=== PATIENT | male | born 1985 | race Caucasian/White ===

== ENCOUNTER 2020-11-25 15:04 | Inpatient (IN) | payer OTHER ==
[~2020-11-25] VITALS: Ht 170.2 cm; Wt 85.9 kg
[2020-11-25] MEDS ORDERED: IOHEXOL 350 MG/ML 75 ML VIAL ONE (16:16)
[2020-11-25] MEDS ORDERED: SODIUM CHLORIDE 0.9% 100 ML ONE (16:16)
[2020-11-25 16:50] LABS: COVID AG,FIA SOURCE NASAL SWAB
[2020-11-25 16:54] LABS: BASOPHILS % (AUTO) 0.7 % (0.0-2.0); EOSINOPHILS % (AUTO) 0.9 % (1.0-6.0); HEMATOCRIT 39.7 % (41-53); LYMPHOCYTES # (AUTO) 0.9 K/uL (1.0-4.8); LYMPHOCYTES % (AUTO) 12.4 % (22.0-44.0); MEAN CORPUSCULAR HEMOGLOBIN 26.9 pg (26.0-34.0); MEAN CORPUSCULAR HGB CONC 32.8 G/dL (31.0-37.0); MEAN CORPUSCULAR VOLUME 82 fL (80-100); MONOCYTES % (AUTO) 13.2 % (2.0-9.0); NEUTROPHILS # (AUTO) 5.3 K/uL (1.8-7.7); NEUTROPHILS % (AUTO) 72.8 % (40.0-70.0); PLATELET COUNT (AUTO) 431 K/uL (150-450); RED BLOOD CELL COUNT(AUTO) 4.85 MIL/uL (4.50-5.90); RED CELL DISTRIBUTION WIDTH 14.8 % (11.5-14.5)
[2020-11-25 17:05] LABS: ANION GAP 7 mmol/L (8-16); CALCIUM, TOTAL 8.7 mg/dL (8.8-10.5); CARBON DIOXIDE 27 mmol/L (22-29); CHLORIDE 103 mmol/L (98-107); CREATININE 1.07 mg/dL (0.60-1.30); GLOMERULAR FILTR. RATE CALC > 60 mL/min (>60); GLUCOSE,RANDOM 97 mg/dL (70-110); POTASSIUM 4.4 mmol/L (3.5-5.1); SODIUM SERUM 137 mmol/L (136-145); UREA NITROGEN, BLOOD 14 mg/dL (7-18)
[2020-11-25 17:11] LABS: ALANINE AMINOTRANSFERASE 73 U/L (12-78); ALBUMIN 3.2 g/dL (3.4-5.0); ALKALINE PHOSPHATASE 129 U/L (46-116); ASPARTATE AMINOTRANSFERASE 27 U/L (15-37); TOTAL PROTEIN, SERUM 8.1 g/dL (6.4-8.2)
[2020-11-25 17:15] LABS: B-TYPE NATRIURETIC PEPTIDE < 5 pg/mL (0-100)
[2020-11-25] MEDS ORDERED: ONDANSETRON HCL 4 MG/2 ML VIAL IVP PRN (19:15)
[2020-11-25] MEDS ORDERED: ACETAMINOPHEN 325 MG TABLET PO PRN (19:15)
[2020-11-25 20:30] VITALS: BP 130/81
[2020-11-26 04:00] VITALS: BP 114/68
[2020-11-26 07:36] VITALS: BP 111/99
[2020-11-26] MEDS ORDERED: MAGNESIUM HYDROXIDE SUSPENSION 30 ML UDCUP PO PRN (09:45)
[2020-11-26] MEDS ORDERED: SODIUM CHLORIDE 3% 15 ML NEB SOLUTION NEB ONE (19:26)
[2020-11-26] MEDS: ACETAMINOPHEN 325 MG TABLET PO PRN (20:09)
[2020-11-26 20:35] VITALS: BP 144/81
[2020-11-27 04:57] VITALS: BP 123/66
[2020-11-27] MEDS ORDERED: SODIUM CHLORIDE 3% 15 ML NEB SOLUTION NEB ONE ×2 (05:32→09:44)
[2020-11-27] MEDS ORDERED: 0.9% SODIUM CHLORIDE 5 ML NEB SOLUTION NEB ONE (05:47)
[2020-11-27 08:00] VITALS: BP 116/59
[2020-11-27] MEDS: FAMOTIDINE 20 MG TABLET PO SCH (09:00)
[2020-11-27] MEDS ORDERED: FentaNYL CITRATE PF 100 MCG/2 ML VIAL ONE (09:12)
[2020-11-27] MEDS ORDERED: MIDAZOLAM HCL 2 MG/2 ML VIAL ONE (09:13)
[2020-11-27] MEDS ORDERED: NALOXONE HCL 0.4 MG/ML VIAL ONE (10:53)
[2020-11-27] MEDS ORDERED: FLUMAZENIL 0.1 MG/ML 5 ML VIAL IVP ONE (10:53)
[2020-11-27] MEDS ORDERED: FentaNYL CITRATE PF 100 MCG/2 ML VIAL IVP ONE ×3 (11:35→12:00)
[2020-11-27] MEDS ORDERED: MIDAZOLAM HCL 2 MG/2 ML VIAL IM ONE (11:35)
[2020-11-27 12:06] LABS: QUANTIFERON, TB GOLD PLUS Positive (Negative)
[2020-11-27] MEDS: ACETAMINOPHEN 325 MG TABLET PO PRN ×2 (14:07→20:25)
[2020-11-27 14:31] LABS: SPECIMENTYPE,BODY FLUID PLEURAL
[2020-11-27 14:44] LABS: PROTHROMBIN TIME 10.8 SEC (9.4-11.6)
[2020-11-27 19:11] LABS: APPEARANCE,SPUN,BODY FLUID CLEAR (CLEAR); APPEARANCE,UNSPUN,BODY FLUID CLEAR (CLEAR); COLOR,BODY FLUID DARK YELLOW (LT YELLOW); EOSINOPHILS,BF (ANAL) 0 %; LYMPHOCYTES,BODY FLUID 68 %; MONOCYTES,BODY FLUID 29 %; NEUTROPHILS,BODY FLUID 3 %; TOTAL VOLUME,BODY FLUID 17 mL; WBC, BODY FLUID 708 /cu. mm.
[2020-11-27 19:12] LABS: BASOPHILS,BODY FLUID 0 %; PH, BODY FLUID 8
[2020-11-27 19:35] VITALS: BP 125/64
[2020-11-28 03:35] VITALS: BP 115/58
[2020-11-28] MEDS: ACETAMINOPHEN 325 MG TABLET PO PRN ×2 (05:41→20:47)
[2020-11-28 07:25] VITALS: BP 121/74
[2020-11-28] MEDS: FAMOTIDINE 20 MG TABLET PO SCH (08:52)
[2020-11-28 12:07] LABS: HIV 1-2 SCREEN 4TH GEN W/RFLX Non Reactive (Non Reactive)
[2020-11-28] MEDS ORDERED: SODIUM CHLORIDE 3% 15 ML NEB SOLUTION NEB ONE (15:00)
[2020-11-28 18:06] LABS: S PNEUMO SOURCE Urine; STREP PNEUMONIAE AG URINE Negative (Negative)
[2020-11-28 19:43] VITALS: BP 120/72
[2020-11-29] MEDS: ACETAMINOPHEN 325 MG TABLET PO PRN ×2 (01:01→21:12)
[2020-11-29 04:45] VITALS: BP 116/60
[2020-11-29 07:59] VITALS: BP 117/69
[2020-11-29] MEDS: FAMOTIDINE 20 MG TABLET PO SCH (08:15)
[2020-11-29 15:59] VITALS: BP 136/74
[2020-11-29 20:08] VITALS: BP 120/61
[2020-11-30 05:16] VITALS: BP 110/55
[2020-11-30 06:37] LABS: ALANINE AMINOTRANSFERASE 56 U/L (12-78); ALBUMIN 2.9 g/dL (3.4-5.0); ALKALINE PHOSPHATASE 133 U/L (46-116); ANION GAP 6 mmol/L (8-16); ASPARTATE AMINOTRANSFERASE 21 U/L (15-37); BILIRUBIN,TOTAL 0.6 mg/dL (0.1-1.0); CARBON DIOXIDE 30 mmol/L (22-29); CHLORIDE 103 mmol/L (98-107); CREATININE 1.03 mg/dL (0.60-1.30); GLOMERULAR FILTR. RATE CALC > 60 mL/min (>60); GLUCOSE,RANDOM 84 mg/dL (70-110); LACTATE DEHYDROGENASE 138 U/L (85-227); POTASSIUM 5.4 mmol/L (3.5-5.1); SODIUM SERUM 139 mmol/L (136-145); UREA NITROGEN, BLOOD 14 mg/dL (7-18)
[2020-11-30 07:34] VITALS: BP 119/68
[2020-11-30] MEDS: FOLIC ACID 1 MG TABLET PO SCH (09:07)
[2020-11-30] MEDS: THIAMINE 100 MG TABLET PO SCH (09:07)
[2020-11-30] MEDS: MULTIVITAMINS WITH MINERALS, THERAPEUTIC TABLET PO SCH (09:07)
[2020-11-30] MEDS: FAMOTIDINE 20 MG TABLET PO SCH (09:07)
[2020-11-30] MEDS: PYRAZINAMIDE 500 MG TABLET PO SCH (16:30)
[2020-11-30] MEDS: ISONIAZID 300 MG TABLET PO SCH (16:30)
[2020-11-30] MEDS: RIFAMPIN 300 MG CAPSULE PO SCH (16:30)
[2020-11-30] MEDS: ETHAMBUTOL HCL 400 MG TABLET PO SCH (16:30)
[2020-11-30] MEDS: PYRIDOXINE HCL 50 MG TABLET PO SCH (16:44)
[2020-11-30 19:44] VITALS: BP 128/73
[2020-11-30] MEDS: ACETAMINOPHEN 325 MG TABLET PO PRN (20:28)
[2020-12-01 05:13] VITALS: BP 109/55
[2020-12-01] MEDS: RIFAMPIN 300 MG CAPSULE PO SCH (08:28)
[2020-12-01] MEDS: ETHAMBUTOL HCL 400 MG TABLET PO SCH (08:28)
[2020-12-01] MEDS: MULTIVITAMINS WITH MINERALS, THERAPEUTIC TABLET PO SCH (08:28)
[2020-12-01] MEDS: ISONIAZID 300 MG TABLET PO SCH (08:28)
[2020-12-01] MEDS: PYRAZINAMIDE 500 MG TABLET PO SCH (08:28)
[2020-12-01] MEDS: FAMOTIDINE 20 MG TABLET PO SCH (08:29)
[2020-12-01] MEDS: FOLIC ACID 1 MG TABLET PO SCH (08:29)
[2020-12-01] MEDS: PYRIDOXINE HCL 50 MG TABLET PO SCH (08:29)
[2020-12-01] MEDS: THIAMINE 100 MG TABLET PO SCH (08:29)
[2020-12-01 08:36] VITALS: BP 107/55
[2020-12-01 19:54] VITALS: BP 126/73
[2020-12-02 05:22] VITALS: BP 122/61
[2020-12-02] MEDS: RIFAMPIN 300 MG CAPSULE PO SCH (08:14)
[2020-12-02] MEDS: FOLIC ACID 1 MG TABLET PO SCH (08:14)
[2020-12-02] MEDS: PYRAZINAMIDE 500 MG TABLET PO SCH (08:14)
[2020-12-02] MEDS: ISONIAZID 300 MG TABLET PO SCH (08:14)
[2020-12-02] MEDS: THIAMINE 100 MG TABLET PO SCH (08:15)
[2020-12-02] MEDS: MULTIVITAMINS WITH MINERALS, THERAPEUTIC TABLET PO SCH (08:15)
[2020-12-02] MEDS: FAMOTIDINE 20 MG TABLET PO SCH (08:15)
[2020-12-02] MEDS: ETHAMBUTOL HCL 400 MG TABLET PO SCH (08:15)
[2020-12-02] MEDS: PYRIDOXINE HCL 50 MG TABLET PO SCH (08:15)
[2020-12-02 08:27] VITALS: BP 101/53
[2020-12-02 16:11] VITALS: BP 118/60
[2020-12-02 21:21] VITALS: BP 130/82
[2020-12-03 05:07] VITALS: BP 105/65
[2020-12-03 08:18] VITALS: BP 113/62
[2020-12-03] MEDS: PYRAZINAMIDE 500 MG TABLET PO SCH (08:51)
[2020-12-03] MEDS: MULTIVITAMINS WITH MINERALS, THERAPEUTIC TABLET PO SCH (08:51)
[2020-12-03] MEDS: FAMOTIDINE 20 MG TABLET PO SCH (08:51)
[2020-12-03] MEDS: ISONIAZID 300 MG TABLET PO SCH (08:51)
[2020-12-03] MEDS: ETHAMBUTOL HCL 400 MG TABLET PO SCH (08:52)
[2020-12-03] MEDS: PYRIDOXINE HCL 50 MG TABLET PO SCH (08:52)
[2020-12-03] MEDS: THIAMINE 100 MG TABLET PO SCH (08:52)
[2020-12-03] MEDS: RIFAMPIN 300 MG CAPSULE PO SCH (08:52)
[2020-12-03] MEDS: FOLIC ACID 1 MG TABLET PO SCH (08:52)
[2020-12-03 20:40] VITALS: BP 122/74
[2020-12-03] MEDS: ACETAMINOPHEN 325 MG TABLET PO PRN (23:54)
[2020-12-04 04:40] VITALS: BP 106/57
[2020-12-04] MEDS: ISONIAZID 300 MG TABLET PO SCH (08:04)
[2020-12-04] MEDS: FAMOTIDINE 20 MG TABLET PO SCH (08:04)
[2020-12-04] MEDS: ETHAMBUTOL HCL 400 MG TABLET PO SCH (08:04)
[2020-12-04] MEDS: RIFAMPIN 300 MG CAPSULE PO SCH (08:04)
[2020-12-04] MEDS: PYRIDOXINE HCL 50 MG TABLET PO SCH (08:04)
[2020-12-04] MEDS: THIAMINE 100 MG TABLET PO SCH (08:04)
[2020-12-04] MEDS: PYRAZINAMIDE 500 MG TABLET PO SCH (08:04)
[2020-12-04] MEDS: MULTIVITAMINS WITH MINERALS, THERAPEUTIC TABLET PO SCH (08:04)
[2020-12-04] MEDS: FOLIC ACID 1 MG TABLET PO SCH (08:04)
[2020-12-04 08:10] VITALS: BP 115/74
[2020-12-04 20:00] VITALS: BP 119/82
[2020-12-05 04:30] VITALS: BP 122/68
[2020-12-05] MEDS: RIFAMPIN 300 MG CAPSULE PO SCH (08:14)
[2020-12-05] MEDS: FOLIC ACID 1 MG TABLET PO SCH (08:14)
[2020-12-05] MEDS: FAMOTIDINE 20 MG TABLET PO SCH (08:14)
[2020-12-05] MEDS: ETHAMBUTOL HCL 400 MG TABLET PO SCH (08:14)
[2020-12-05] MEDS: PYRAZINAMIDE 500 MG TABLET PO SCH (08:14)
[2020-12-05] MEDS: ISONIAZID 300 MG TABLET PO SCH (08:14)
[2020-12-05] MEDS: THIAMINE 100 MG TABLET PO SCH (08:14)
[2020-12-05] MEDS: MULTIVITAMINS WITH MINERALS, THERAPEUTIC TABLET PO SCH (08:14)
[2020-12-05] MEDS: PYRIDOXINE HCL 50 MG TABLET PO SCH (09:27)
[2020-12-05 20:08] VITALS: BP 124/75
[2020-12-06 06:04] VITALS: BP 115/71
[2020-12-06 08:30] VITALS: BP 120/65
[2020-12-06] MEDS: MULTIVITAMINS WITH MINERALS, THERAPEUTIC TABLET PO SCH (09:12)
[2020-12-06] MEDS: PYRAZINAMIDE 500 MG TABLET PO SCH (09:12)
[2020-12-06] MEDS: THIAMINE 100 MG TABLET PO SCH (09:12)
[2020-12-06] MEDS: ISONIAZID 300 MG TABLET PO SCH (09:12)
[2020-12-06] MEDS: RIFAMPIN 300 MG CAPSULE PO SCH (09:12)
[2020-12-06] MEDS: FOLIC ACID 1 MG TABLET PO SCH (09:12)
[2020-12-06] MEDS: FAMOTIDINE 20 MG TABLET PO SCH (09:12)
[2020-12-06] MEDS: PYRIDOXINE HCL 50 MG TABLET PO SCH (09:12)
[2020-12-06] MEDS: ETHAMBUTOL HCL 400 MG TABLET PO SCH (09:13)
[2020-12-06] MEDS: ACETAMINOPHEN 325 MG TABLET PO PRN (09:25)
[2020-12-06 21:48] VITALS: BP 127/78
[2020-12-07 00:23] VITALS: BP 120/79
[2020-12-07 05:37] VITALS: BP 116/67
[2020-12-07 07:54] VITALS: BP 121/55
[2020-12-07] MEDS: ISONIAZID 300 MG TABLET PO SCH (09:03)
[2020-12-07] MEDS: PYRAZINAMIDE 500 MG TABLET PO SCH (09:03)
[2020-12-07] MEDS: PYRIDOXINE HCL 50 MG TABLET PO SCH (09:03)
[2020-12-07] MEDS: RIFAMPIN 300 MG CAPSULE PO SCH (09:04)
[2020-12-07] MEDS: FOLIC ACID 1 MG TABLET PO SCH (09:04)
[2020-12-07] MEDS: ETHAMBUTOL HCL 400 MG TABLET PO SCH (09:04)
[2020-12-07] MEDS: MULTIVITAMINS WITH MINERALS, THERAPEUTIC TABLET PO SCH (09:04)
[2020-12-07] MEDS: FAMOTIDINE 20 MG TABLET PO SCH (09:04)
[2020-12-07] MEDS: THIAMINE 100 MG TABLET PO SCH (09:04)
[2020-12-07 21:34] VITALS: BP 131/77
[2020-12-08 04:25] VITALS: BP 115/75
[2020-12-08 08:00] VITALS: BP 122/62
[2020-12-08] MEDS: RIFAMPIN 300 MG CAPSULE PO SCH (09:41)
[2020-12-08] MEDS: ETHAMBUTOL HCL 400 MG TABLET PO SCH (09:41)
[2020-12-08] MEDS: PYRAZINAMIDE 500 MG TABLET PO SCH (09:42)
[2020-12-08] MEDS: MULTIVITAMINS WITH MINERALS, THERAPEUTIC TABLET PO SCH (09:42)
[2020-12-08] MEDS: FOLIC ACID 1 MG TABLET PO SCH (09:42)
[2020-12-08] MEDS: FAMOTIDINE 20 MG TABLET PO SCH (09:42)
[2020-12-08] MEDS: PYRIDOXINE HCL 50 MG TABLET PO SCH (09:42)
[2020-12-08] MEDS: ISONIAZID 300 MG TABLET PO SCH (09:42)
[2020-12-08] MEDS: THIAMINE 100 MG TABLET PO SCH (09:42)
[2020-12-08 19:50] VITALS: BP 130/73
[2020-12-09 04:53] VITALS: BP 118/59
[2020-12-09 08:19] VITALS: BP 125/75
[2020-12-09] MEDS: PYRAZINAMIDE 500 MG TABLET PO SCH (08:36)
[2020-12-09] MEDS: ETHAMBUTOL HCL 400 MG TABLET PO SCH (08:36)
[2020-12-09] MEDS: MULTIVITAMINS WITH MINERALS, THERAPEUTIC TABLET PO SCH (08:36)
[2020-12-09] MEDS: RIFAMPIN 300 MG CAPSULE PO SCH (08:37)
[2020-12-09] MEDS: FAMOTIDINE 20 MG TABLET PO SCH (08:37)
[2020-12-09] MEDS: FOLIC ACID 1 MG TABLET PO SCH (08:37)
[2020-12-09] MEDS: ISONIAZID 300 MG TABLET PO SCH (08:37)
[2020-12-09] MEDS: THIAMINE 100 MG TABLET PO SCH (08:37)
[2020-12-09] MEDS: PYRIDOXINE HCL 50 MG TABLET PO SCH (08:40)
[2020-12-09 16:03] VITALS: BP 128/70
[2020-12-09 20:15] VITALS: BP 155/87
[2020-12-10 04:20] VITALS: BP 134/81
[2020-12-10 06:06] LABS: HEPATITIS C AB (EIA) <0.1 s/co ratio (0.0-0.9)
[2020-12-10 08:43] VITALS: BP 115/68
[2020-12-10] MEDS: FOLIC ACID 1 MG TABLET PO SCH (09:01)
[2020-12-10] MEDS: PYRIDOXINE HCL 50 MG TABLET PO SCH (09:01)
[2020-12-10] MEDS: THIAMINE 100 MG TABLET PO SCH (09:01)
[2020-12-10] MEDS: ETHAMBUTOL HCL 400 MG TABLET PO SCH (09:01)
[2020-12-10] MEDS: FAMOTIDINE 20 MG TABLET PO SCH (09:01)
[2020-12-10] MEDS: ISONIAZID 300 MG TABLET PO SCH (09:01)
[2020-12-10] MEDS: MULTIVITAMINS WITH MINERALS, THERAPEUTIC TABLET PO SCH (09:01)
[2020-12-10] MEDS: RIFAMPIN 300 MG CAPSULE PO SCH (09:01)
[2020-12-10] MEDS: PYRAZINAMIDE 500 MG TABLET PO SCH (09:01)
[2020-12-10 21:08] VITALS: BP 123/70
[2020-12-11 05:10] VITALS: BP 115/72
[2020-12-11 07:39] LABS: EOSINOPHILS % (AUTO) 2.6 % (1.0-6.0); HEMATOCRIT 38.8 % (41-53); HEMOGLOBIN 13.1 g/dL (13.5-17.5); LYMPHOCYTES # (AUTO) 0.9 K/uL (1.0-4.8); LYMPHOCYTES % (AUTO) 15.6 % (22.0-44.0); MEAN CORPUSCULAR HEMOGLOBIN 26.9 pg (26.0-34.0); MEAN CORPUSCULAR HGB CONC 33.8 G/dL (31.0-37.0); MEAN CORPUSCULAR VOLUME 80 fL (80-100); MONOCYTES # (AUTO) 0.6 K/uL (0.1-1.0); MONOCYTES % (AUTO) 9.8 % (2.0-9.0); NEUTROPHILS # (AUTO) 4.2 K/uL (1.8-7.7); PLATELET COUNT (AUTO) 420 K/uL (150-450); RED BLOOD CELL COUNT(AUTO) 4.88 MIL/uL (4.50-5.90); RED CELL DISTRIBUTION WIDTH 14.6 % (11.5-14.5)
[2020-12-11 07:49] LABS: ALANINE AMINOTRANSFERASE 35 U/L (12-78); ALBUMIN 3.1 g/dL (3.4-5.0); ALKALINE PHOSPHATASE 143 U/L (46-116); ANION GAP 8 mmol/L (8-16); ASPARTATE AMINOTRANSFERASE 16 U/L (15-37); BILIRUBIN,TOTAL 0.4 mg/dL (0.1-1.0); CALCIUM, TOTAL 9.1 mg/dL (8.8-10.5); CARBON DIOXIDE 28 mmol/L (22-29); CHLORIDE 104 mmol/L (98-107); CREATININE 1.04 mg/dL (0.60-1.30); GLOMERULAR FILTR. RATE CALC > 60 mL/min (>60); GLUCOSE,RANDOM 89 mg/dL (70-110); POTASSIUM 4.4 mmol/L (3.5-5.1); SODIUM SERUM 140 mmol/L (136-145); TOTAL PROTEIN, SERUM 7.8 g/dL (6.4-8.2); UREA NITROGEN, BLOOD 16 mg/dL (7-18)
[2020-12-11 08:31] VITALS: BP 102/58
[2020-12-11] MEDS: THIAMINE 100 MG TABLET PO SCH (08:39)
[2020-12-11] MEDS: RIFAMPIN 300 MG CAPSULE PO SCH (08:39)
[2020-12-11] MEDS: ISONIAZID 300 MG TABLET PO SCH (08:39)
[2020-12-11] MEDS: PYRAZINAMIDE 500 MG TABLET PO SCH (08:39)
[2020-12-11] MEDS: ETHAMBUTOL HCL 400 MG TABLET PO SCH (08:39)
[2020-12-11] MEDS: FOLIC ACID 1 MG TABLET PO SCH (08:40)
[2020-12-11] MEDS: PYRIDOXINE HCL 50 MG TABLET PO SCH (08:40)
[2020-12-11] MEDS: MULTIVITAMINS WITH MINERALS, THERAPEUTIC TABLET PO SCH (08:40)
[2020-12-11] MEDS: FAMOTIDINE 20 MG TABLET PO SCH (08:40)
[2020-12-11 20:23] VITALS: BP 130/75
[2020-12-11] MEDS: ZOLPIDEM TARTRATE 5 MG TABLET PO PRN (23:41)
[2020-12-12 04:19] VITALS: BP 104/53
[2020-12-12 08:22] VITALS: BP 132/82
[2020-12-12] MEDS: PYRIDOXINE HCL 50 MG TABLET PO SCH (09:18)
[2020-12-12] MEDS: ETHAMBUTOL HCL 400 MG TABLET PO SCH (09:18)
[2020-12-12] MEDS: THIAMINE 100 MG TABLET PO SCH (09:18)
[2020-12-12] MEDS: RIFAMPIN 300 MG CAPSULE PO SCH (09:18)
[2020-12-12] MEDS: PYRAZINAMIDE 500 MG TABLET PO SCH (09:18)
[2020-12-12] MEDS: FOLIC ACID 1 MG TABLET PO SCH (09:19)
[2020-12-12] MEDS: FAMOTIDINE 20 MG TABLET PO SCH (09:19)
[2020-12-12] MEDS: ISONIAZID 300 MG TABLET PO SCH (09:19)
[2020-12-12] MEDS: MULTIVITAMINS WITH MINERALS, THERAPEUTIC TABLET PO SCH (09:19)
[2020-12-12 12:50] VITALS: BP 127/77
[2020-12-12 16:10] VITALS: BP 130/78
[2020-12-12 19:49] VITALS: BP 124/71
[2020-12-12] MEDS: ZOLPIDEM TARTRATE 5 MG TABLET PO PRN (22:08)
[2020-12-13 05:21] VITALS: BP 101/56
[2020-12-13 08:06] VITALS: BP 113/50
[2020-12-13] MEDS: PYRIDOXINE HCL 50 MG TABLET PO SCH (08:38)
[2020-12-13] MEDS: PYRAZINAMIDE 500 MG TABLET PO SCH (08:38)
[2020-12-13] MEDS: ETHAMBUTOL HCL 400 MG TABLET PO SCH (08:39)
[2020-12-13] MEDS: FOLIC ACID 1 MG TABLET PO SCH (08:39)
[2020-12-13] MEDS: RIFAMPIN 300 MG CAPSULE PO SCH (08:39)
[2020-12-13] MEDS: ISONIAZID 300 MG TABLET PO SCH (08:39)
[2020-12-13] MEDS: MULTIVITAMINS WITH MINERALS, THERAPEUTIC TABLET PO SCH (08:39)
[2020-12-13] MEDS: THIAMINE 100 MG TABLET PO SCH (08:39)
[2020-12-13] MEDS: FAMOTIDINE 20 MG TABLET PO SCH (08:39)
[2020-12-13 16:08] VITALS: BP 126/79
[2020-12-13 20:03] VITALS: BP 148/91
[2020-12-13] MEDS: ZOLPIDEM TARTRATE 5 MG TABLET PO PRN (22:49)
[2020-12-14 04:30] VITALS: BP 122/68
[2020-12-14 08:03] VITALS: BP 113/72
[2020-12-14] MEDS: PYRAZINAMIDE 500 MG TABLET PO SCH (09:20)
[2020-12-14] MEDS: THIAMINE 100 MG TABLET PO SCH (09:20)
[2020-12-14] MEDS: ISONIAZID 300 MG TABLET PO SCH (09:20)
[2020-12-14] MEDS: RIFAMPIN 300 MG CAPSULE PO SCH (09:20)
[2020-12-14] MEDS: PYRIDOXINE HCL 50 MG TABLET PO SCH (09:20)
[2020-12-14] MEDS: ETHAMBUTOL HCL 400 MG TABLET PO SCH (09:20)
[2020-12-14] MEDS: FAMOTIDINE 20 MG TABLET PO SCH (09:21)
[2020-12-14] MEDS: FOLIC ACID 1 MG TABLET PO SCH (09:21)
[2020-12-14] MEDS: MULTIVITAMINS WITH MINERALS, THERAPEUTIC TABLET PO SCH (09:21)
[2020-12-14 15:30] VITALS: BP 117/77
[2020-12-14] MEDS ORDERED: SODIUM CHLORIDE 3% 15 ML NEB SOLUTION NEB ONE (19:59)
[2020-12-14 20:09] VITALS: BP 131/79
[2020-12-14] MEDS: ZOLPIDEM TARTRATE 5 MG TABLET PO PRN (21:15)
[2020-12-14 22:43] LABS: ALBUMIN 3.3 g/dL (3.4-5.0); BILIRUBIN,DIRECT 0.1 mg/dL (0.00-0.20); BILIRUBIN,TOTAL 0.3 mg/dL (0.1-1.0)
[2020-12-15] MEDS ORDERED: SODIUM CHLORIDE 3% 15 ML NEB SOLUTION NEB ONE (03:46)
[2020-12-15 05:32] VITALS: BP 116/66
[2020-12-15 07:30] VITALS: BP 116/64
[2020-12-15] MEDS: PYRAZINAMIDE 500 MG TABLET PO SCH (08:33)
[2020-12-15] MEDS: RIFAMPIN 300 MG CAPSULE PO SCH (08:34)
[2020-12-15] MEDS: THIAMINE 100 MG TABLET PO SCH (08:34)
[2020-12-15] MEDS: MULTIVITAMINS WITH MINERALS, THERAPEUTIC TABLET PO SCH (08:34)
[2020-12-15] MEDS: PYRIDOXINE HCL 50 MG TABLET PO SCH (08:34)
[2020-12-15] MEDS: ISONIAZID 300 MG TABLET PO SCH (08:34)
[2020-12-15] MEDS: FAMOTIDINE 20 MG TABLET PO SCH (08:34)
[2020-12-15] MEDS: FOLIC ACID 1 MG TABLET PO SCH (08:34)
[2020-12-15 15:16] VITALS: BP 128/73
[2020-12-15] MEDS: ETHAMBUTOL HCL 400 MG TABLET PO SCH (17:32)
[2020-12-15 20:07] VITALS: BP 136/71
[2020-12-15] MEDS: ZOLPIDEM TARTRATE 5 MG TABLET PO PRN (21:20)
[2020-12-16 04:55] VITALS: BP 117/68
[2020-12-16 07:46] VITALS: BP 128/72
[2020-12-16] MEDS: ETHAMBUTOL HCL 400 MG TABLET PO SCH (08:56)
[2020-12-16] MEDS: THIAMINE 100 MG TABLET PO SCH (08:57)
[2020-12-16] MEDS: PYRIDOXINE HCL 50 MG TABLET PO SCH (08:57)
[2020-12-16] MEDS: ISONIAZID 300 MG TABLET PO SCH (08:57)
[2020-12-16] MEDS: RIFAMPIN 300 MG CAPSULE PO SCH (08:57)
[2020-12-16] MEDS: FOLIC ACID 1 MG TABLET PO SCH (08:57)
[2020-12-16] MEDS: MULTIVITAMINS WITH MINERALS, THERAPEUTIC TABLET PO SCH (08:57)
[2020-12-16] MEDS: FAMOTIDINE 20 MG TABLET PO SCH (08:57)
[2020-12-16] MEDS: PYRAZINAMIDE 500 MG TABLET PO SCH (09:59)
[2020-12-16] MEDS ORDERED: DEXTRAN 70 0.1%/HYPROMELL 0.3% 0.9 ML OPHTHALMIC SOLUTION [PF] OU PRN (12:15)
[2020-12-16 19:23] VITALS: BP 124/71
[2020-12-16] MEDS: ZOLPIDEM TARTRATE 5 MG TABLET PO PRN (21:32)
[2020-12-17 04:04] VITALS: BP 104/62
[2020-12-17 08:01] VITALS: BP 127/72
[2020-12-17] MEDS: ETHAMBUTOL HCL 400 MG TABLET PO SCH (09:31)
[2020-12-17] MEDS: RIFAMPIN 300 MG CAPSULE PO SCH (09:31)
[2020-12-17] MEDS: MULTIVITAMINS WITH MINERALS, THERAPEUTIC TABLET PO SCH (09:32)
[2020-12-17] MEDS: ISONIAZID 300 MG TABLET PO SCH (09:32)
[2020-12-17] MEDS: FOLIC ACID 1 MG TABLET PO SCH (09:32)
[2020-12-17] MEDS: FAMOTIDINE 20 MG TABLET PO SCH (09:32)
[2020-12-17] MEDS: PYRIDOXINE HCL 50 MG TABLET PO SCH (09:32)
[2020-12-17] MEDS: THIAMINE 100 MG TABLET PO SCH (09:33)
[2020-12-17] MEDS: PYRAZINAMIDE 500 MG TABLET PO SCH (10:18)
[2020-12-17 15:44] VITALS: BP 127/68
[2020-12-17] MEDS: ZOLPIDEM TARTRATE 5 MG TABLET PO PRN (20:05)
[2020-12-17 20:39] VITALS: BP 136/89
[2020-12-18 04:58] VITALS: BP 117/66
[2020-12-18 08:00] VITALS: BP 108/59
[2020-12-18] MEDS: PYRAZINAMIDE 500 MG TABLET PO SCH (08:51)
[2020-12-18] MEDS: ETHAMBUTOL HCL 400 MG TABLET PO SCH (08:52)
[2020-12-18] MEDS: ISONIAZID 300 MG TABLET PO SCH (08:52)
[2020-12-18] MEDS: PYRIDOXINE HCL 50 MG TABLET PO SCH (08:52)
[2020-12-18] MEDS: MULTIVITAMINS WITH MINERALS, THERAPEUTIC TABLET PO SCH (08:52)
[2020-12-18] MEDS: FAMOTIDINE 20 MG TABLET PO SCH (08:52)
[2020-12-18] MEDS: RIFAMPIN 300 MG CAPSULE PO SCH (08:52)
[2020-12-18] MEDS: FOLIC ACID 1 MG TABLET PO SCH (08:53)
[2020-12-18] MEDS: THIAMINE 100 MG TABLET PO SCH (08:53)
[2020-12-18] MEDS ORDERED: ETHA100T14 PO (15:29)
[2020-12-18] MEDS ORDERED: ISON100L PO (15:30)
[2020-12-18] MEDS ORDERED: PYRA500 PO (15:30)
[2020-12-18] MEDS ORDERED: MULT-248 PO (15:30)
[2020-12-18] MEDS ORDERED: THIA100T80 PO (15:32)
[2020-12-18] MEDS ORDERED: PYRI-6 PO (15:32)
[2020-12-18] MEDS ORDERED: RIFA300 PO (15:32)
== END 2020-12-18 17:30 | DRG 178 ==
LOC: EMS 15:07 → 6S 19:00
PROVIDERS: ADMIT Internal Medicine; ATTEND Internal Medicine
PROC: 0W993ZZ Drainage of Right Pleural Cavity, Percutaneous Approach (ICD-10-PCS; principal; 2020-11-26)
DX: A15.0 Tuberculosis of lung (principal); E44.0 Moderate protein-calorie malnutrition; J90 Pleural effusion, not elsewhere classified; Z20.1 Contact with and (suspected) exposure to tuberculosis; Z86.16 Personal history of COVID-19; Z87.01 Personal history of pneumonia (recurrent); Z68.29 Body mass index [BMI] 29.0-29.9, adult
CPT/HCPCS: 32550; 71045; 71250; 71275; 75989; 80053; 80074; 80076; 83036; 83605; 83615; 83880; 83986; 84145; 84157; 84311; 84484; 85025; 85379; 85610; 86403; 86480; 86635; 86738; 87015; 87040; 87070; 87081; 87101; 87149; 87188; 87205; 87206; 87305; 87389; 87449; 87556; 87899; 88108; 88312; 89051; 93005; 94640; 94799; 99242; 99285; J2250; J2310; J3010; J3490; J7050; Q9967; 36415-L1; 36415-TC

== ENCOUNTER 2021-02-03 12:45 | Emergency (ER) | payer SELFPAY ==
[~2021-02-03] VITALS: Ht 170.2 cm; Wt 91.0 kg
[~2021-02-03 12:45] MED LIST: ETHA100T14 PO; ISON100L PO; MULT-248 PO; PYRA500 PO; PYRI-6 PO; RIFA300 PO; THIA100T80 PO
[2021-02-03 14:34] VITALS: BP 134/89
[2021-02-03 14:34] LABS: BASOPHILS % (AUTO) 1.1 % (0.0-2.0); EOSINOPHILS % (AUTO) 1.7 % (1.0-6.0); HEMATOCRIT 40.8 % (41-53); HEMOGLOBIN 13.8 g/dL (13.5-17.5); LYMPHOCYTES # (AUTO) 0.8 K/uL (1.0-4.8); LYMPHOCYTES % (AUTO) 16.7 % (22.0-44.0); MEAN CORPUSCULAR HEMOGLOBIN 27.3 pg (26.0-34.0); MEAN CORPUSCULAR HGB CONC 33.8 G/dL (31.0-37.0); MEAN CORPUSCULAR VOLUME 81 fL (80-100); MONOCYTES # (AUTO) 0.5 K/uL (0.1-1.0); MONOCYTES % (AUTO) 10.9 % (2.0-9.0); NEUTROPHILS # (AUTO) 3.3 K/uL (1.8-7.7); NEUTROPHILS % (AUTO) 69.6 % (40.0-70.0); PLATELET COUNT (AUTO) 337 K/uL (150-450); RED BLOOD CELL COUNT(AUTO) 5.06 MIL/uL (4.50-5.90); RED CELL DISTRIBUTION WIDTH 15.7 % (11.5-14.5)
[2021-02-03 14:42] LABS: ANION GAP 9 mmol/L (8-16); CALCIUM, TOTAL 9.1 mg/dL (8.8-10.5); CARBON DIOXIDE 30 mmol/L (22-29); CHLORIDE 103 mmol/L (98-107); CREATININE 0.98 mg/dL (0.60-1.30); GLOMERULAR FILTR. RATE CALC > 60 mL/min (>60); GLUCOSE,RANDOM 96 mg/dL (70-110); POTASSIUM 3.8 mmol/L (3.5-5.1); SODIUM SERUM 142 mmol/L (136-145); UREA NITROGEN, BLOOD 12 mg/dL (7-18)
== END 2021-02-03 15:29 | disposition home or self-care (01) ==
LOC: EMS 12:46
DX: R07.89 Other chest pain (principal)
CPT/HCPCS: 71045; 80048; 85025; 93005; 99285; 36415-L1; 36415-TC